=== PATIENT | male | born 1985 | race Caucasian/White ===

== ENCOUNTER 2017-04-06 19:14 | Emergency (ER) | payer OTHER ==
[~2017-04-06] VITALS: Ht 167.6 cm; Wt 127.0 kg
[~2017-04-06 19:14] MED LIST: ACCUNEB SO1.25 MG/1 INH; CIPROFLOXACIN500 M1 PO; COLACE100 MG PO; FLEXERIL PO; IBUPROFEN 400400 M2 PO; IBUPROFEN 800800 MG PO; JOCK ITCH15 G1 TP; LISINOPRIL10 MG PO; LISINOPRIL20 MG PO; NAPROSYN500 MG PO; NOHOMEMEDICATIONS; NORCO 5-325 TA1 EACH PO; PEPCID40 MG PO; PERCOCET 5-3251 EACH PO; PROAIR HFA8.5 GM INH; PROCTOFOAM-HC 110 GM RC; TAMSULOSIN HCL0.4 M1 PER TUBE; TESSALON PERLE100 MG PO; TRAMADOL 50 MG50 MG PO; TYLENOL325 MG PO; ULTRAM 50MG TAB50 MG PO; ZANTAC 150MG T150 MG PO; ZOFRAN ODT4 MG PO; ZPAK PO
[2017-04-06] MEDS ORDERED: ERYTHROMYCIN E3.5 G2 OPHTHALMIC (20:49)
[2017-04-06] MEDS ORDERED: IBUPROFEN 600600 M1 PO (20:51)
[2017-04-06 20:57] VITALS: BP 146/88
== END 2017-04-06 20:58 | disposition home or self-care (01) ==
LOC: ER 19:14
DX: H57.12 Ocular pain, left eye (principal); I10 Essential (primary) hypertension; F17.210 Nicotine dependence, cigarettes, uncomplicated; F10.99 Alcohol use, unspecified with unspecified alcohol-induced disorder; Z87.442 Personal history of urinary calculi; Z88.0 Allergy status to penicillin